=== PATIENT | male | born 1985 | race Hispanic/Latino ===

== ENCOUNTER 2017-06-21 17:50 | Emergency (ER) | payer SELFPAY ==
[2017-06-21 17:56] VITALS: BP 149/73; PULSE 94; RESP 16; TEMP 97; O2SAT 99
[2017-06-21] MEDS ORDERED: Sodium Chloride 0.9% 1,000 ML IV STA (17:56)
[2017-06-21 18:24] LABS: BASO % 0.7 % (0.0-2.0); EOS # 0.1 K/uL (0.0-0.7); EOS % 1.5 % (0.0-4.0); HEMATOCRIT 44.8 % (35.0-51.0); LYMPH # 1.4 K/uL (1.0-4.3); LYMPH % 28.4 % (20.0-40.0); MEAN CORPUSCULAR HEMOGLOBIN 30.4 pg (27.0-31.0); MEAN CORPUSCULAR HGB CONC 34.9 g/dL (33.0-37.0); MEAN PLATELET VOLUME 8.3 fl (7.2-11.7); MONO # 0.4 K/uL (0.0-0.8); MONO % 7.4 % (0.0-10.0); NEUT # 3.1 K/uL (1.8-7.0)
[2017-06-21 18:32] LABS: ALB/GLOB RATIO 1.9 (1.0-2.1); ALKALINE PHOSPHATASE 93 U/L (38-126); ALT/SGPT 27 U/L (21-72); AST/SGOT 27 U/L (17-59); BILIRUBIN,TOTAL 1.1 mg/dl (0.2-1.3); BLOOD UREA NITROGEN 13 mg/dl (9-20); CALCIUM 9.5 mg/dL (8.4-10.2); CARBON DIOXIDE 23 mmol/L (22-30); CHLORIDE 103 mmol/L (98-107); GFR AFRICAN-AMERICAN > 60; GLUCOSE,RANDOM 162 mg/dL (75-110); LIPASE 68 U/L (23-300); POTASSIUM 3.8 MMOL/L (3.6-5.0); SODIUM 141 mmol/l (132-148); TOTAL PROTEIN 7.1 G/DL (6.3-8.2)
--- NOTE | 2017-06-21 18:56 | ED PDOC ---
HPI: Abdomen Time Seen by Provider: 06/21/17 17:57 Chief Complaint (Nursing): Abdominal Pain Chief Complaint (Provider): adbominal pain History Per: Patient History/Exam Limitations: no limitations Associated Symptoms: Nausea, Loss Of Appetite. denies: Fever, Chills, Vomiting , Diarrhea, Back Pain, Chest Pain, Constipation, Urinary Symptoms Additional Complaint(s): 32yo M in ED with abdominal pain nausea without vomiting and dizziness after eating a pizza. denies diarrhea states abd pain is crampy and dull with radiation to back. no fever no body aches no rash no sick contacts Past Medical History Reviewed: Historical Data, Nursing Documentation, Vital Signs Vital Signs: Last Vital Signs Temp 97.0 F L 06/21/17 17:52 Pulse 94 H 06/21/17 17:52 Resp 16 06/21/17 17:52 BP 149/73 06/21/17 17:52 Pulse Ox 99 06/21/17 18:59 - Medical History PMH: Anxiety (panic attacks) - Family History Family History: States: No Known Family Hx - Home Medications Home Medications: Ambulatory Orders Medication Instructions Recorded Dicyclomine [Bentyl] 20 mg PO TID #30 tab 06/21/17 Ondansetron [Zofran] 4 mg PO Q8H #12 tab 06/21/17 - Allergies Allergies/Adverse Reactions: Allergies Allergy/AdvReac Type Severity Reaction Status Date / Time No Known Allergies Allergy Verified 06/21/17 17:56 Review of Systems ROS Statement: Except As Marked, All Systems Reviewed And Found Negative Gastrointestinal: Positive for: Nausea, Abdominal Pain. Negative for: Vomiting Physical Exam - Reviewed Nursing Documentation Reviewed: Yes Vital Signs Reviewed: Yes - Physical Exam Appears: Positive for: Non-toxic, No Acute Distress, Uncomfortable Head Exam: Positive for: ATRAUMATIC, NORMAL INSPECTION, NORMOCEPHALIC Skin: Positive for: Normal Color, Warm, DRY Cardiovascular/Chest: Positive for: Regular Rate, Rhythm Respiratory: Positive for: CNT, Normal Breath Sounds Gastrointestinal/Abdominal: Positive for: Normal Exam, Bowel Sounds, Soft. Negative for: Tenderness Back: Positive for: Normal Inspection. Negative for: L CVA Tenderness, R CVA Tenderness Extremity: Positive for: Normal ROM Neurologic/Psych: Positive for: Alert, Oriented - Laboratory Results Result Diagrams: 06/21/17 18:08 06/21/17 18:08 - ECG O2 Sat by Pulse Oximetry: 99 - Progress ED Course And Treament: pt offered zofran and pepcid and Bentyl, but declined accepted only NS fluids. Medical Decision Making Medical Decision Making: pt feels much improved in ED and wants to be d/c with supportive care at home. pt again offered symptom relief with medication-but declined. Vital Signs - 24 hr 06/21/17 06/21/17 17:52 18:56 Temperature 97.0 F L Pulse Rate 94 H Respiratory 16 Rate Blood Pressure 149/73 O2 Sat by Pulse 99 99 Oximetry 06/21/17 06/21/17 18:08 18:08 WBC 5.0 RBC 5.15 Hgb 15.6 Hct 44.8 MCV 87.0 MCH 30.4 MCHC 34.9 RDW 13.0 Plt Count 192 MPV 8.3 Neut % (Auto) 62.0 Lymph % (Auto) 28.4 [place] % (Auto) 7.4 Eos % (Auto) 1.5 Baso % (Auto) 0.7 Neut # 3.1 Lymph # 1.4 [place] # 0.4 Eos # 0.1 Baso # 0.0 Sodium 141 Potassium 3.8 Chloride 103 Carbon Dioxide 23 Anion Gap 18 BUN 13 Creatinine 1.0 Est GFR ( Amer) > 60 Est GFR (Non-Af Amer) > 60 Random Glucose 162 H Calcium 9.5 Total Bilirubin 1.1 AST 27 ALT 27 Alkaline Phosphatase 93 Total Protein 7.1 Albumin 4.7 Globulin 2.4 Albumin/Globulin Ratio 1.9 Lipase 68 Disposition - Clinical Impression Clinical Impression: Abdominal pain - Patient ED Disposition Is Patient to be Admitted: No Counseled Patient/Family Regarding: Studies Performed, Diagnosis, Need For Followup, Rx Given - Disposition Disposition: Routine/Home Disposition Time: 19:09 Condition: IMPROVED Prescriptions: Dicyclomine [Bentyl] 20 mg PO TID #30 tab Ondansetron [Zofran] 4 mg PO Q8H #12 tab Instructions: Abdominal Pain (ED) Forms: [employer] ([place]itanian)
== END 2017-06-21 19:25 | disposition home or self-care (01) ==
LOC: H.ER 17:50
DX: R10.9 Unspecified abdominal pain (principal); F41.9 Anxiety disorder, unspecified
CPT/HCPCS: 80053; 83690; 85025; 96360; 99283; J7040